=== PATIENT | male | born 1985 | race Caucasian/White ===

== ENCOUNTER 2017-02-03 13:57 | Emergency (ER) | payer OTHER ==
[2017-02-03 14:12] VITALS: BP 148/87
--- NOTE | 2017-02-03 14:48 | EDM.PDOC ---
ED HPI GENERAL MEDICAL PROBLEM - General Chief Complaint: General Stated Complaint: POSS EXPOSURE OF HEP C Time Seen by Provider: 02/03/17 14:26 - History of Present Illness INITIAL COMMENTS - FREE TEXT/NARRATIVE: HISTORY AND PHYSICAL: History of present illness: Patient 31-year-old [employer] who is here for medical screening exam patient was involved with the patient with hepatitis C there was no known body fluid exposure of consequence Review of systems: As per history of present illness and below otherwise all systems reviewed and negative. Past medical history: As per history of present illness and as reviewed below otherwise noncontributory. Surgical history: As per history of present illness and as reviewed below otherwise noncontributory. Social history: No reported history of drug or alcohol abuse. Family history: As per history of present illness and as reviewed below otherwise noncontributory. Physical exam: Deferred Diagnostics: Employee exposure panel Therapeutics: None Impression: #1 medical screening exam Definitive disposition and diagnosis as appropriate pending reevaluation and review of above. - Related Data Allergies Allergy/AdvReac Type Severity Reaction Status Date / Time bee pollen Allergy Swelling Verified 02/03/17 14:12 Penicillins Allergy Cannot Verified 02/03/17 14:12 Remember [place] Allergy Hives Uncoded 02/03/17 14:12 Home Meds: Home Meds . [No Known Home Meds] 02/03/17 [History] Past Medical History - Past Health History Medical/Surgical History: Denies Medical/Surgical History Other Musculoskeletal History: hx: fracture Right pinky and Right Leg as young person, Nose fractured - Infectious Disease History Infectious Disease History: Reports: Chicken Pox - Past Surgical History Other HEENT Surgeries/Procedures: [place] teeth extracted Musculoskeletal Surgical History: Reports: Arthroscopic Knee Social & Family History - Family History Cardiac: Reports: CAD Endocrine/Metabolic: Reports: Diabetes, Type I - Tobacco Use Smoking Status *Q: Current Some Day Smoker Years of Tobacco use: 16 Packs/Tins Daily: 1 - Caffeine Use Caffeine Use: Reports: Coffee, Soda, Tea - Alcohol Use Days Per Week of Alcohol Use: 3 Number of Drinks Per Day: 2 Total Drinks Per Week: 6 - Recreational Drug Use Recreational Drug Use: No Drug Use in Last 12 Months: No ED ROS GENERAL - Review of Systems Review Of Systems: ROS reveals no pertinent complaints other than HPI. ED EXAM, GENERAL - Physical Exam Exam: See Below (See dictation) Course - Vital Signs Last Recorded V/S: Last Vital Signs Temp 36.6 C 02/03/17 14:10 Pulse 89 02/03/17 14:10 Resp 18 02/03/17 14:10 BP 148/87 H 02/03/17 14:10 Pulse Ox 95 02/03/17 14:10 - Orders/Labs/Meds Orders: Active Orders 24 hr Category Date Time Status HEP B SURFACE AB,QNT [REF] Stat Lab 02/03/17 14:40 Ordered HEPATITIS C AB [REF] Stat Lab 02/03/17 14:40 Ordered HIV12 AG/AB 4TH GEN W/REFLEX [CHEM] Stat Lab 02/03/17 14:40 Ordered Departure - Departure Time of Disposition: 14:48 Disposition: Home, Self-Care 01 Condition: Good Clinical Impression: Encounter for medical screening examination - Discharge Information Referrals: PCP,None [Primary Care Provider] - Additional Instructions: The following information is given to patients seen in the emergency department who are being discharged to home. This information is to outline your options for follow-up care. We provide all patients seen in our emergency department with a follow-up referral. The need for follow-up, as well as the timing and circumstances, are variable depending upon the specifics of your emergency department visit. If you don't have a primary care physician on staff, we will provide you with a referral. We always advise you to contact your personal physician following an emergency department visit to inform them of the circumstance of the visit and for follow-up with them and/or the need for any referrals to a consulting specialist. The emergency department will also refer you to a specialist when appropriate. This referral assures that you have the opportunity for followup care with a specialist. All of these measure are taken in an effort to provide you with optimal care, which includes your followup. Under all circumstances we always encourage you to contact your private physician who remains a resource for coordinating your care. When calling for followup care, please make the office aware that this follow-up is from your recent emergency room visit. If for any reason you are refused follow-up, please contact the [facility] emergency department at and asked to speak to the emergency department charge nurse. Follow-up primary medical doctor/occupational medicine return as needed as discussed - My Orders Last 24 Hours: My Active Orders 02/03/17 14:40 HEP B SURFACE AB,QNT [REF] Stat HEPATITIS C AB [REF] Stat HIV12 AG/AB 4TH GEN W/REFLEX [CHEM] Stat - Assessment/Plan Last 24 Hours: My Active Orders 02/03/17 14:40 HEP B SURFACE AB,QNT [REF] Stat HEPATITIS C AB [REF] Stat HIV12 AG/AB 4TH GEN W/REFLEX [CHEM] Stat
== END 2017-02-03 15:24 | disposition home or self-care (01) ==
LOC: MW.ED 13:57
DX: Z13.818 Encounter for screening for other digestive system disorders (principal); Z88.0 Allergy status to penicillin; Z91.030 Bee allergy status
CPT/HCPCS: 36415; 86706; 86803; 87389; 99282; 99283

== ENCOUNTER 2024-02-20 19:36 | Emergency (ER) | payer BC ==
[2024-02-20] MEDS: Acetaminophen 500 MG Tab PO ONE (20:10)
[2024-02-20] MEDS: Diphtheria,Pertussis(Acell),Tetanus Vaccine 0.5 ML Syringe IM ONE (20:10)
[2024-02-20 20:13] VITALS: BP 135/76; PULSE 68
[2024-02-20] MEDS: Bacitracin Oint 28.35 GM Tube TOP ONE (20:22)
== END 2024-02-20 20:32 | disposition home or self-care (01) ==
LOC: MW.ED 19:36
DX: T22.212A Burn of second degree of left forearm, initial encounter (principal); Z23 Encounter for immunization; I10 Essential (primary) hypertension; Z88.0 Allergy status to penicillin; Z91.018 Allergy to other foods; Z91.030 Bee allergy status; Z79.899 Other long term (current) drug therapy; X12.XXXA Contact with other hot fluids, initial encounter
CPT/HCPCS: 16020; 90471; 90715; 99283; A9270